=== PATIENT | male | born 1985 | race Caucasian/White ===

== ENCOUNTER 2017-03-03 11:47 | Emergency (ER) | payer OTHER ==
[~2017-03-03] VITALS: Ht 162.6 cm; Wt 78.3 kg
[2017-03-03 12:04] VITALS: BP 121/72; PULSE 97; RESP 18; TEMP 98.6; O2SAT 97
--- NOTE | 2017-03-03 12:40 | RADRPT ---
EXAM DATE/TIME: 03/03/2017 12:20 [place] COMPARISON: No previous studies available for comparison. INDICATIONS : Laceration to the left side on the face from glass. MEDICAL HISTORY : None. SURGICAL HISTORY : None. ENCOUNTER: Initial ACUITY: 1 day PAIN SCORE: 8/10 LOCATION: Left cheekbone. FINDINGS: Two view examination of the facial bones demonstrates no gross evidence of fracture. No radiopaque f oreign bodies are seen. CONCLUSION: 1. There is no evidence of acute fracture. Ryne Wilks MD on March 03, 2017 at 12:38 Board Certified Radiologist. This report was verified electronically.
--- NOTE | 2017-03-03 12:41 | PD ---
HPI Chief Complaint: Laceration/Skin Injury Time Seen by Provider: 12:32 Travel History International Travel<30 days: No Contact w/Intl Traveler<30days: No Traveled to known affect area: No History of Present Illness HPI 32-year-old male presents to the ED for evaluation of facial laceration. Sustained just before arrival. Patient states that a piece of glass fell ~1 foot and struck him on the left cheek and ear. He denies loss of consciousness. Denies numbness, tingling, limitations to range of motion or facial droop. He states last tetanus immunization was within 5 years. [facility] Social History Tobacco Use: No Allergies-Medications (Allergen,Severity, Reaction): Coded Allergies: No Known Allergies (Unverified , 03/03/17) Reported Meds & Prescriptions Reported Meds & Active Scripts Active Ibuprofen 600 Mg Tab 600 Mg PO Q8H PRN 5 Days Review of Systems Except as stated in HPI: all other systems reviewed are Neg Physical Exam Narrative GENERAL: Well-nourished, well-developed male in no acute distress.. SKIN: Focused skin assessment warm/dry. There is a 2.5 cm laceration across the left cheek bone. There is a 1.75 cm laceration on the anterior aspect of the left ear lobe and a 2 cm laceration of the posterior aspect of the left earlobe. HEAD: Normocephalic. EYES: No scleral icterus. No injection or drainage. NECK: Supple, trachea midline. No JVD or lymphadenopathy. CARDIOVASCULAR: Regular rate and rhythm without murmurs, gallops, or rubs. RESPIRATORY: Breath sounds equal bilaterally. No accessory muscle use. GASTROINTESTINAL: Abdomen soft, non-tender, nondistended. MUSCULOSKELETAL: No cyanosis, or edema. NEUROLOGICAL: Awake and alert. Cranial nerves II through XII intact. Motor and sensory grossly within normal limits. Normal speech. BACK: Nontender without obvious deformity. No CVA tenderness. Data Data Last Documented VS Vital Signs Date Time Temp Pulse Resp B/P (MAP) Pulse Ox O2 Delivery O2 Flow Rate FiO2 03/03/17 14:46 18 03/03/17 12:04 98.6 97 121/72 (88) 97 Orders Orders Facial Bones - Ltd (<3vws) (03/03/17 12:12) Lidocaine 1% Inj (50 Ml) (Xylocaine 1% I (03/03/17 12:45) Acetamin-Hydrocod 325-5 Mg ([place] 5-325 (03/03/17 14:00) MDM Medical Decision Making Medical Screen Exam Complete: Yes Emergency Medical Condition: Yes Differential Diagnosis Abrasion versus laceration versus need for tetanus immunization versus partial dictation of the earlobe versus other Narrative Course 32-year-old male presents to the ED for evaluation of facial laceration. Sustained just before arrival. Patient states that a piece of glass fell ~1 foot and struck him on the left cheek and ear. He denies loss of consciousness. Denies numbness, tingling, limitations to range of motion or facial droop. He states last tetanus immunization was within 5 years. X-ray reveals no foreign body. Laceration repair 3 was performed. Please procedure notes for details. Patient is instructed to keep the wounds clean, dry, covered , return to the ED in 3 days for wound recheck. He is provided a brief course of anti-inflammatory pain medications. He stable and discharged home. Procedures Procedure Narrative LACERATION LOCATION: Left Preauricular area LENGTH: 2.5 cm NUMBER OF STITCHES/NATASHA: 6 REPAIR: The area of the laceration was prepped with Betadine and sterilely draped. The laceration was infiltrated with 1% lidocaine. The wound was copiously irrigated and explored without evidence of foreign body, tendon injury or neurovascular injury. The wound was closed using 4-0 Prolene. This was a single layer repair. A sterile dressing was applied. The patient was advised to keep the dressing clean and dry. Patient tolerated the procedure well. LACERATION LOCATION: Anterior aspect of the left earlobe LENGTH: 1.75 cm NUMBER OF STITCHES/NATASHA: 5 REPAIR: The area of the laceration was prepped with Betadine and sterilely draped. The laceration was infiltrated with 1% lidocaine. The wound was copiously irrigated and explored without evidence of foreign body, tendon injury or neurovascular injury. The wound was closed using 5-0 Prolene. This was a single layer repair. A sterile dressing was applied. The patient was advised to keep the dressing clean and dry. Patient tolerated the procedure well. LACERATION LOCATION: Posterior aspect left earlobe LENGTH: 2 cm NUMBER OF STITCHES/NATASHA: 7 REPAIR: The area of the laceration was prepped with Betadine and sterilely draped. The laceration was infiltrated with 1% lidocaine. The wound was copiously irrigated and explored without evidence of foreign body, tendon injury or neurovascular injury. The wound was closed using 4-0 Prolene. This was a single layer repair. A sterile dressing was applied. The patient was advised to keep the dressing clean and dry. Patient tolerated the procedure well. Diagnosis Primary Impression: Laceration of face Qualified Codes: S01.81XA - Laceration without foreign body of other part of head, initial encounter Additional Impression: Laceration of external ear Qualified Codes: S01.312A - Laceration without foreign body of left ear, initial encounter Referrals: Primary Care Physician Patient Instructions: Care For Your Stitches (ED), Facial Laceration (ED), General Instructions Additional Instructions: Rest, hydrate. Do not change the dressing for 24 hours You may shower normally. Do not submerge the wound. After bathing pat of wound dry. Allow the wound to air dry for 10-15 minutes. Apply a thin layer of antibiotic ointment and a clean, dry dressing. Utilize [id number] pain medications, as described on the label, as needed. Return to the ED in 72 hours for wound recheck. Facial sutures should be removed in 5-7 days. Ear sutures should be removed in 10-14 days. Return to the ED for any urgent or emergent medical condition. Scripts Ibuprofen (Ibuprofen) 600 Mg Tab 600 MG PO Q8H Y for PAIN for 5 Days, TAB 0 Refills Prov: Sarahi Zhang DO 03/03/17 Disposition: 01 DISCHARGE HOME Condition: Stable Nicole Vega Mar 03, 2017 12:41
[2017-03-03] MEDS ORDERED: LIDOCAINE HCL 1% 50 ML VIAL INFIL ONE (12:45)
[2017-03-03] MEDS ORDERED: ACETAMINOPHEN/HYDROcodone 325 MG/5 MG TAB PO ONE (14:00)
[2017-03-03] MEDS ORDERED: IBUP-232 PO (14:01)
[2017-03-03 14:46] VITALS: RESP 18
== END 2017-03-03 14:48 | disposition home or self-care (01) ==
LOC: PHEFT 11:47
DX: S01.81XA Laceration without foreign body of other part of head, initial encounter (principal); S01.312A Laceration without foreign body of left ear, initial encounter; W25.XXXA Contact with sharp glass, initial encounter; Y99.0 Civilian activity done for income or pay
CPT/HCPCS: 12014; 70140